=== PATIENT | female | born 2000 | race Caucasian/White ===

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

== ENCOUNTER 2021-01-04 18:31 | Outpatient (REF) | payer MEDICAID, SELFPAY ==
[2021-01-08 14:58] LABS: Chlamydia Result Negative (Negative); GC Result Negative (Negative)
== END 2021-01-04 18:32 | disposition home or self-care (01) ==
LOC: NCHCN 18:31
PROVIDERS: PCP Nurse Practitioner Family; Visit Provider Family Medicine
DX: R30.0 Dysuria (principal); Z11.3 Encounter for screening for infections with a predominantly sexual mode of transmission
CPT/HCPCS: 87491; 87591

== ENCOUNTER 2021-01-07 11:32 | Outpatient (REF) | payer MEDICAID, SELFPAY | END 2021-01-07 11:33 | disposition home or self-care (01) | LOC: NCHCN 11:32 | PROVIDERS: PCP Nurse Practitioner Family; Visit Provider Internal Medicine | DX: Z11.3 Encounter for screening for infections with a predominantly sexual mode of transmission (principal); R30.0 Dysuria | CPT/HCPCS: 87086 ==

== ENCOUNTER 2021-04-23 15:11 | Outpatient (REF) | payer MEDICAID, SELFPAY ==
[2021-04-25 17:55] LABS: Chlamydia Result Negative (Negative); GC Result Negative (Negative)
== END 2021-04-23 15:12 | disposition home or self-care (01) ==
LOC: NCHCN 15:11
PROVIDERS: PCP Nurse Practitioner Family; Visit Provider Family Medicine
DX: Z11.3 Encounter for screening for infections with a predominantly sexual mode of transmission (principal)
CPT/HCPCS: 87491; 87591

== ENCOUNTER 2021-08-06 15:48 | Outpatient (REF) | payer MEDICAID, SELFPAY ==
[2021-08-06 21:35] LABS: TSH (W/Ref FT4) 1.48 uIU/mL (0.36-3.74)
[2021-08-08 13:32] LABS: Chlamydia Result Negative (Negative); GC Result Negative (Negative)
== END 2021-08-06 15:49 | disposition home or self-care (01) ==
LOC: NCHCN 15:48
PROVIDERS: PCP Nurse Practitioner Family; Visit Provider Family Medicine
DX: R63.4 Abnormal weight loss (principal); R10.2 Pelvic and perineal pain
CPT/HCPCS: 87491; 87591; 84443

== ENCOUNTER 2022-02-05 16:14 | Outpatient (REF) | payer MEDICAID, SELFPAY ==
[2022-02-07 15:08] LABS: GC Result Negative (Negative)
[2022-02-07 15:17] LABS: Chlamydia Result Positive (Negative)
== END 2022-02-05 16:15 | disposition home or self-care (01) ==
LOC: NCHCN 16:14
PROVIDERS: PCP Nurse Practitioner Family; Visit Provider Family Medicine
DX: Z11.3 Encounter for screening for infections with a predominantly sexual mode of transmission (principal)
CPT/HCPCS: 87491; 87591

== ENCOUNTER 2022-04-22 16:39 | Outpatient (REF) | payer MEDICAID, SELFPAY ==
[2022-04-25 16:01] LABS: Chlamydia Result Negative (Negative); GC Result Negative (Negative)
== END 2022-04-22 16:40 | disposition home or self-care (01) ==
LOC: NCHCN 16:39
PROVIDERS: PCP Nurse Practitioner Family; Visit Provider Family Medicine
DX: A56.2 Chlamydial infection of genitourinary tract, unspecified (principal)
CPT/HCPCS: 87491; 87591

== ENCOUNTER 2022-07-15 16:25 | Outpatient (REF) | payer MEDICAID, SELFPAY ==
[2022-07-17 12:22] LABS: Chlamydia Result Negative (Negative); GC Result Negative (Negative)
== END 2022-07-15 16:26 | disposition home or self-care (01) ==
LOC: NCHCN 16:25
PROVIDERS: PCP Nurse Practitioner Family; Visit Provider Family Medicine
DX: Z11.3 Encounter for screening for infections with a predominantly sexual mode of transmission (principal)
CPT/HCPCS: 87491; 87591

== ENCOUNTER 2022-09-26 15:09 | Outpatient (REF) | payer MEDICAID, SELFPAY ==
--- NOTE | 2022-09-26 10:30 | PAPFT_PTH ---
PATIENT: Ana Luisa Foster LOC: [facility] U#:[id number] AGE/SX: 22/F ROOM: RE09/26/[address]: Sarah Thomas : 2000 BED: DIS: 09/26/2022 SPEC #: [id number] RECD: 09/28/22 07:46 STATUS: MERY REQ #: [id number] RITIKA: 09/26/22 10:[address]: Sarah Thomas [facility] Cytology RECD BY: Marla Martin ENTERED: 09/28/22 07:46 SP TYPE: PAPFT OTHR DR: Marcie Carrasquillo Tissues: 1 - CX/ENDOCX FOR PAP SMEARS Procedures: PAP THIN PREP/[facility] Screening Comments: [id number] (CHLAMYDIA/GC)
[2022-09-29 13:53] LABS: Chlamydia Result Negative (Negative); GC Result Negative (Negative)
== END 2022-09-26 15:10 | disposition home or self-care (01) ==
LOC: NCHCN 15:09
PROVIDERS: PCP Nurse Practitioner Family; Visit Provider Family Medicine
DX: Z11.3 Encounter for screening for infections with a predominantly sexual mode of transmission (principal); Z12.4 Encounter for screening for malignant neoplasm of cervix
CPT/HCPCS: 87491; 87591; 88142

== ENCOUNTER 2022-12-12 12:35 | Outpatient (REF) | payer MEDICAID, SELFPAY ==
[2022-12-12 14:52] LABS: Abs Immature Grans 0.01 10^3/uL (0.0-0.06); Absolute Basophil Count 0.05 10^3/uL (0.0-0.2); Absolute Eosinophil Count 0.18 10^3/uL (0.0-0.7); Absolute Lymphocyte Count 1.65 10^3/uL (1.2-3.4); Absolute Monocyte Count 0.54 10^3/uL (0.1-0.8); Absolute Neutrophil Count 3.17 10^3/uL (1.2-6.7); Basophils % 0.9; Eosinophils % 3.2; HCT 40.7 % (36.0-46.0); HGB 13.6 g/dL (11.2-15.7); Immature Grans % 0.2; Lymphocytes % 29.5; MCH 31.2 pg (27.0-33.0); MCHC 33.4 % (32.0-36.0); MCV 93 fL (80-95); Monocytes % 9.6; Neutrophils % 56.6; RBC 4.36 10^6/uL (3.93-5.22); RDW 13.3 % (11.7-14.6); RDW-SD 45.9 fL
[2022-12-12 15:03] LABS: ALT 30 U/L (14-59); AST 26 U/L (15-37); Albumin 4.2 g/dL (3.4-5.0); Alkaline Phosphatase 52 U/L (46-116); Anion Gap 7.5 mmol/L (3-11); BUN 10 mg/dL (7-18); Bilirubin, Total 3.7 mg/dL (0.2-1.0); CO2 27.5 mmol/L (21.0-32.0); CREATININE 0.8 mg/dL (0.55-1.02); Calcium 8.9 mg/dL (8.5-10.1); Chloride 107 mmol/L (98-107); Estimated GFR 107.44 (mL/min/1.73m2); Glucose 97 mg/dL (74-106); Potassium 4.4 mmol/L (3.5-5.1); Sodium 142 mmol/L (136-145); Total Protein 7.4 g/dL (6.4-8.2)
[2022-12-12 15:12] LABS: Platelet Count 194 10^3/uL (130-400)
[2022-12-15 10:11] LABS: Lyme Ab w Rflx to Lyme Confirm Negative (Negative)
[2022-12-15 21:04] LABS: Anaplasma phagocytophilum Negative (Negative); B. miyamotoi PCR Negative (Negative); Babesia divergens/MO-1 Negative (Negative); Babesia duncani Negative (Negative); Babesia microti Negative (Negative); Ehrlichia chaffeensis Negative (Negative); Ehrlichia ewingii/canis Negative (Negative); Ehrlichia muris eauclairensis Negative (Negative)
== END 2022-12-12 12:36 | disposition home or self-care (01) ==
LOC: NCHCN 12:35
PROVIDERS: PCP Nurse Practitioner Family; Visit Provider Family Medicine
DX: W57.XXXA Bitten or stung by nonvenomous insect and other nonvenomous arthropods, initial encounter (principal); T14.8XXA Other injury of unspecified body region, initial encounter
CPT/HCPCS: 80053; 87798; 85025; 86618

== ENCOUNTER 2023-02-20 10:18 | Outpatient (REF) | payer MEDICAID, SELFPAY ==
[2023-02-20 16:00] LABS: Bilirubin, Direct 0.3 mg/dL (0.0-0.2); Bilirubin, Total 2.2 mg/dL (0.2-1.0)
== END 2023-02-20 10:19 | disposition home or self-care (01) ==
LOC: NCHCN 10:18
PROVIDERS: PCP Nurse Practitioner Family; Visit Provider Family Medicine
DX: E80.6 Other disorders of bilirubin metabolism (principal)
CPT/HCPCS: 82247; 82248

== ENCOUNTER 2023-08-07 16:30 | Outpatient (REF) | payer MEDICAID, SELFPAY ==
--- OUTSIDE RECORDS SUMMARY | 2023-08-07 16:32 | XMS_ITS | CCD ---
Author Name Unknown Address [address] [place] [address] [id number] Organization Unknown Address [address] [place] [address] [phone] Care Team Providers Care Internet Database Specialist Name Role Phone NAOMI BARKSDALE Attending Physician [phone] Vital Signs Unknown or Not Available. Allergies Unknown or Not Available. Procedures Unknown or Not Available. History of Immunizations Unknown or Not Available. Problems Unknown or Not Available. Results Unknown or Not Available. Active Medications Unknown or Not Available. Medications Administered During Visit Unknown or Not Available. Encounters Encounter Diagnosis Diagnosis Code Start Date Pelvic and perineal pain [id number] Social History Smoking Status Code Start Date End Date Never smoker [id number] Patient Decision Aids Unknown or Not Available. Discharge Instructions You were admitted to [facility] on 08/20/2021 08:50 with a principal diagnosis of Pelvic and perineal pain You were discharged from [facility] on 08/20/2021 08:50 Should you have any questions prior to discharge, please contact a member of your healthcare team. If you have left the hospital and have any questions, please contact your primary care physician. Chief Complaint and Reason For Visit Chief Complaint Date of Onset ADNEXAL PAIN Function Status Unknown or Not Available. Plan of Care Unknown or Not Available. Referral/Transition of Care Unknown or Not Available.
--- OUTSIDE RECORDS SUMMARY | 2023-08-07 16:32 | XMS_ITS | CCD ---
Author Name Unknown Address [address] [place] [address] [phone] Organization Unknown Address [address] [place] [address] [phone] Care Team Providers Care Wet Suit Gluer Name Role Phone DANIEL MARQUEZ Attending Physician [phone] AVA GUERRA Er Physician 3 [phone] NADIA Rolle Registered Nurse [phone] Vital Signs Vital Sign Value Unit Date/Time Recent/Initial ? BMI (Body Mass Index) 24.2 kg/m^2 12/03/2022 13: 48 Initial VS Weight Measured 140 lbs 12/03/2022 13:48 Ini tial VS Height 63.78 in 12/03/2022 13:48 Initial VS BSA (Body Surface Area) 1.69 m^2 12/03/2022 1 3:48 Initial VS BP Systolic 114 mmHg 12/03/2022 13:48 Initial VS BP Diastolic 76 mmHg 12/03/2022 13:48 Initia l VS Respiratory Rate 18 bpm 12/03/2022 13:48 In itial VS Heart Rate 76 bpm 12/03/2022 13:48 Initial VS O2 % BldC Oximetry 100 % 12/03/2022 13:48 Initial VS Body Temperature 36.5 degrees 12/03/2022 13:48 In itial VS BP Systolic 114 mmHg 12/03/2022 18:04 Most Re cent VS BP Diastolic 72 mmHg 12/03/2022 18:04 Most R ecent VS Respiratory Rate 16 bpm 12/03/2022 18:[address] Recent VS Heart Rate 55 bpm 12/03/2022 18:04 Most Rec ent VS O2 % BldC Oximetry 98 % 12/03/2022 18:04 Most Recent VS Allergies Unknown or Not Available. Procedures Unknown or Not Available. History of Immunizations Unknown or Not Available. Problems Unknown or Not Available. Results BILIRUBIN DIRECT* - Collect Date/Time: 12/03/2022 15:03 Test Name Code Test Result Test Units Test Ref Rang e BILIRUBIN DIRECT 1971-1 0.20 mg/dL L=0.00 H =0.50 COMPREHENSIVE METABOLIC PANE L (CMP) - Collect Date/Time: 12/03/2022 15:03 Test Name Code Test Result Test Units Test Ref Rang e GLUCOSE 2345-7 87 mg/dL L=70 H=116 BUN 3094-0 9 mg/dL L=6 H=25 CREATININE 2160-0 0.81 mg/dL L=0.51 H=0.95 SODIUM SERUM 2951-2 142 mmol/L L=136 H=145 POTASSIUM SERUM 2823-3 3.6 mmol/L L=3.4 H=5 .2 CHLORIDE SERUM 2075-0 103 mmol/L L=96 H=110 CARBON DIOXIDE (CO2) 2028-9 29 mmol/L L=22 H=34 ANION GAP 30668-9 9.8 mmol/L CALCIUM SERUM 68404-2 9.1 mg/dL L=8.2 H=10. 2 BILIRUBIN TOTAL 1975-2 3.5 mg/dL L=0.0 H=1 .3 ALK. PHOS. 6768-6 47 U/L L=46 H=116 SGOT (AST) 1920-8 34 U/L L=15 H=37 SGPT (ALT) 1742-6 39 U/L L=12 H=78 TOTAL PROTEIN 2885-2 7.4 gm/dL L=6.0 H=8.0 ALBUMIN 1751-7 4.3 gm/dL L=3.4 H=5.0 AGE 22 years eGFR (non-Afr.Amer.) 70778-1 89 mL/min eGFR (Afr-Pakistani) 99207-2 108 mL/min LIPASE* NEW - Collect Date/T josé: 12/03/2022 15:03 Test Name Code Test Result Test Units Test Ref Rang e LIPASE. 11 U/L L=16 H=77 CBC W/ DIFFERENTIAL* - Colle ct Date/Time: 12/03/2022 15:03 Test Name Code Test Result Test Units Test Ref Rang e WBC 6690-2 6.90 th/cmm L=5.00 H=10.00 NEUT % 61.7 % L=40.0 H=80.0 LYMPH % 28.1 % L=10.0 H=50.0 MONO % 24139-1 7.5 % L=2.0 H=12.0 EOS % 1.4 % L=0.0 H=8.0 BASO % 1.0 % L=0.0 H=3.0 IG % 2514-8 0.3 % L=0.0 H=1.1 NRBC % 03664-8 0.0 % L=0.0 H=0.0 NEUT abs count 751-8 4.3 th/cmm L=1.6 H=8. 4 LYMPH abs count 731-0 1.9 th/cmm L=1.5 H=4 .0 MONO abs count 742-7 0.5 th/cmm L=0.2 H=1. 0 EOS abs count 711-2 0.1 th/cmm L=0.0 H=0.5 BASO abs count 704-7 0.1 th/cmm L=0.0 H=0. 2 IG abs count 98334-5 0.0 th/cmm L=0.0 H=0.1 NRBC abs count 41068-5 0.0 mil/cmm L=0.0 H=0. 0 RBC 789-8 4.38 mil/cmm L=3.90 H=5.40 HEMOGLOBIN 718-7 13.7 gm/dL L=12.0 H=16.0 HEMATOCRIT 4544-3 41 % L=37 H=47 MCV 787-2 94 fL L=82 H=92 MCH 785-6 31.3 pg L=27.0 H=31.0 MCHC 786-4 33.4 % L=32.0 H=36.0 RDW-SD 788-0 47.1 fL L=39.0 H=49.0 PLATELET COUNT 777-3 175 th/cmm L=150 H=45 0 TEST QUAL (URINE) - Collect Date/Time: 12/03/2022 15:03 Test Name Code Test Result Test Units Test Ref Rang e TEST 2105-08 NEGATIVE N/A URINALYSIS WITH REFLEX CULT IF POSITIVE* - Collect Date/Time: 12/03/2022 16:54 Test Name Code Test Result Test Units Test Ref Rang e COLLECTION MODE: 96193-4 CLEAN CATCH N/A Color 5778-6 JESUS N/A yellow Appearance 5767-9 HAZY N/A clear Glucose urine 36863-2 NEGATIVE N/A negative mg /dl Bilirubin 5770-3 SMALL N/A negative Ketones 2514-8 TRACE N/A negative mg/dl Spec gravity 5811-5 >=1.030 N/A 1.003 - 1.03 0 pH urine 2756-5 6.0 N/A 5.0 - 7.0 Protein 12744-4 TRACE N/A negative mg/dl Urobilinogen 72104-3 0.2 N/A <or= 1 EU/dl Nitrite. 5802-4 NEGATIVE N/A negative Blood 5794-3 NEGATIVE N/A negative Leukocytes. NEGATIVE N/A negative MICROSCOPIC NOT INDICAT N/A URINALYSIS WITH REFLEX CULT IF POSITIVE* - Collect Date/Time: 12/03/2022 15:03 Test Name Code Test Result Test Units Test Ref Rang e COLLECTION MODE: 73456-2 DNR N/A Color 5778-6 DNR N/A yellow Appearance 5767-9 DNR N/A clear Glucose urine 25755-5 DNR N/A negative mg /dl Bilirubin 5770-3 DNR N/A negative Ketones 2514-8 DNR N/A negative mg/dl Spec gravity 5811-5 DNR N/A 1.003 - 1.03 0 pH urine 2756-5 DNR N/A 5.0 - 7.0 Protein 55529-9 DNR N/A negative mg/dl Urobilinogen 65199-7 DNR N/A <or= 1 EU/dl Nitrite. 5802-4 DNR N/A negative Blood 5794-3 DNR N/A negative Leukocytes. DNR N/A negative MICROSCOPIC DNR N/A WBCs. 24917-1 DNR N/A 0-5 / hpf RBCs 59786-3 DNR N/A 0-5 / hpf Epith cells 45613-8 DNR N/A 0-5 / hpf Cell types DNR N/A Crystals DNR N/A none Bacteria DNR N/A none Mucus 8247-9 DNR N/A none Casts 61858-9 DNR N/A none /lpf Active Medications Unknown or Not Available. Medications Administered During Visit Unknown or Not Available. Encounters Encounter Diagnosis Diagnosis Code Start Date Eczema [id number] 12/03/2022 Social History Smoking Status Code Start Date End Date Never smoker [id number] Patient Decision Aids Unknown or Not Available. Discharge Instructions You were admitted to [facility] on 12/03/2022 13:44 with a principal diagnosis of Dermatitis, unspecified You had the following tests done:URINALYSIS WITH REFLEX CULT IF POSITIVE*BILIRUBIN DIRECT*CBC W/ DIFFERENTIAL*COMPREHENSIVE METABOLIC PANEL (CMP)LIPASE* NEWPREGNANCY TEST QUAL (URINE) You were discharged from [facility] on 12/03/2022 18:05 Should you have any questions prior to discharge, please contact a member of your healthcare team. If you have left the hospital and have any questions, please contact your primary care physician. Chief Complaint and Reason For Visit Chief Complaint Date of Onset FULL BODY RASH AFTER RECENT TRAVEL Function Status Unknown or Not Available. Plan of Care Unknown or Not Available. Referral/Transition of Care Unknown or Not Available.
--- OUTSIDE RECORDS SUMMARY | 2023-08-07 16:32 | XMS_ITS | CCD ---
Author Name Unknown Address [address] [place] [address] [phone] Organization Unknown Address [address] [place] [address] [phone] Care Team Providers Care Stores Assistant Name Role Phone CHAUNCEY HARPER Attending Physician [phone] CHAUNCEY HARPER Er Physician 2 [phone] NAHEED Villa Registered Nurse [phone] DANIA Villa Registered Nurse [phone] Vital Signs Vital Sign Value Unit Date/Time Recent/Initial ? BMI (Body Mass Index) 22.6 kg/m^2 01/07/2023 10: 53 Initial VS Weight Measured 140 lbs 01/07/2023 10:53 Ini tial VS Height 66 in 01/07/2023 10:53 Initial VS BSA (Body Surface Area) 1.72 m^2 01/07/2023 1 0:53 Initial VS BP Systolic 122 mmHg 01/07/2023 10:53 Initial VS BP Diastolic 93 mmHg 01/07/2023 10:53 Initia l VS Respiratory Rate 19 bpm 01/07/2023 10:53 In itial VS Heart Rate 144 bpm 01/07/2023 10:53 Initial VS O2 % BldC Oximetry 97 % 01/07/2023 10:53 Initial VS Body Temperature 37.1 degrees 01/07/2023 10:53 In itial VS BP Systolic 100 mmHg 01/07/2023 13:15 Most Re cent VS BP Diastolic 57 mmHg 01/07/2023 13:15 Most R ecent VS Respiratory Rate 14 bpm 01/07/2023 13:[address] Recent VS Heart Rate 58 bpm 01/07/2023 13:15 Most Rec ent VS O2 % BldC Oximetry 98 % 01/07/2023 13:15 Most Recent VS Body Temperature 36.4 degrees 01/07/2023 13:[address] Recent VS Allergies Allergy Code Allergy Type Reaction Status BEE POLLEN 456300 Drug allergy Active Procedures Unknown or Not Available. History of Immunizations Unknown or Not Available. Problems Unknown or Not Available. Results CBC W/ DIFFERENTIAL* - [facility] ct Date/Time: 01/07/2023 11:08 Test Name Code Test Result Test Units Test Ref Rang e WBC 6690-2 7.29 th/cmm L=5.00 H=10.00 NEUT % 58.3 % L=40.0 H=80.0 LYMPH % 32.1 % L=10.0 H=50.0 MONO % 24558-8 7.0 % L=2.0 H=12.0 EOS % 1.8 % L=0.0 H=8.0 BASO % 0.7 % L=0.0 H=3.0 IG % 2514-8 0.1 % L=0.0 H=1.1 NRBC % 87087-9 0.0 % L=0.0 H=0.0 NEUT abs count 751-8 4.3 th/cmm L=1.6 H=8. 4 LYMPH abs count 731-0 2.3 th/cmm L=1.5 H=4 .0 MONO abs count 742-7 0.5 th/cmm L=0.2 H=1. 0 EOS abs count 711-2 0.1 th/cmm L=0.0 H=0.5 BASO abs count 704-7 0.1 th/cmm L=0.0 H=0. 2 IG abs count 32030-2 0.0 th/cmm L=0.0 H=0.1 NRBC abs count 10064-6 0.0 mil/cmm L=0.0 H=0. 0 RBC 789-8 4.88 mil/cmm L=3.90 H=5.40 HEMOGLOBIN 718-7 15.1 gm/dL L=12.0 H=16.0 HEMATOCRIT 4544-3 46 % L=37 H=47 MCV 787-2 94 fL L=82 H=92 MCH 785-6 30.9 pg L=27.0 H=31.0 MCHC 786-4 32.9 % L=32.0 H=36.0 RDW-SD 788-0 45.8 fL L=39.0 H=49.0 PLATELET COUNT 777-3 206 th/cmm L=150 H=45 0 TEST QUAL (URINE) - Collect Date/Time: 01/07/2023 11:05 Test Name Code Test Result Test Units Test Ref Rang e TEST 2105-3 NEGATIVE N/A URINALYSIS WITH REFLEX CULT IF POSITIVE* - Collect Date/Time: 01/07/2023 11:05 Test Name Code Test Result Test Units Test Ref Rang e COLLECTION MODE: 24095-3 CLEAN CATCH N/A Color 5778-6 YELLOW N/A yellow Appearance 5767-9 CLEAR N/A clear Glucose urine 59083-8 NEGATIVE N/A negative mg /dl Bilirubin 5770-3 NEGATIVE N/A negative Ketones 2514-8 NEGATIVE N/A negative mg/dl Spec gravity 5811-5 1.020 N/A 1.003 - 1.03 0 pH urine 2756-5 7.5 N/A 5.0 - 7.0 Protein 20945-1 NEGATIVE N/A negative mg/dl Urobilinogen 10689-0 1.0 N/A <or= 1 EU/dl Nitrite. 5802-4 NEGATIVE N/A negative Blood 5794-3 NEGATIVE N/A negative Leukocytes. NEGATIVE N/A negative MICROSCOPIC NOT INDICAT N/A CHLAMYDIA/GC AMPLIFIED PROBE * - Collect Date/Time: 01/07/2023 12:30 Test Name Code Test Result Test Units Test Ref Rang e Chlamydia Result Negative N/A Negative GC Result Negative N/A Negative Active Medications Unknown or Not Available. Medications Administered During Visit Unknown or Not Available. Encounters Encounter Diagnosis Diagnosis Code Start Date Unspecified ovarian cyst, right side [id number] 01/07/2023 Social History Smoking Status Code Start Date End Date Never smoker [id number] Patient Decision Aids Unknown or Not Available. Discharge Instructions You were admitted to [facility] on 01/07/2023 10:39 with a principal diagnosis of Unspecified ovarian cyst, right side You had the following tests done:CHLAMYDIA/GC AMPLIFIED PROBE*CBC W/ DIFFERENTIAL* TEST QUAL (URINE)URINALYSIS WITH REFLEX CULT IF POSITIVE* You were discharged from [facility] on 01/07/2023 13:30 Should you have any questions prior to discharge, please contact a member of your healthcare team. If you have left the hospital and have any questions, please contact your primary care physician. Chief Complaint and Reason For Visit Chief Complaint Date of Onset EXTREME LOW ABDOMEN PAIN Function Status Unknown or Not Available. Plan of Care Unknown or Not Available. Referral/Transition of Care Unknown or Not Available.
--- OUTSIDE RECORDS SUMMARY | 2023-08-07 16:32 | XMS_ITS | CCD ---
Author Name Unknown Address [address] [place] [address] [phone] Organization Unknown Address [address] [place] [address] [phone] Care Team Providers Care [facility] Counselor Name Role Phone NAOMI BARKSDALE Attending Physician [phone] Vital Signs Unknown or Not Available. Allergies Unknown or Not Available. Procedures Unknown or Not Available. History of Immunizations Unknown or Not Available. Problems Unknown or Not Available. Results Unknown or Not Available. Active Medications Unknown or Not Available. Medications Administered During Visit Unknown or Not Available. Encounters Encounter Diagnosis Diagnosis Code Start Date Jaundice [id number] 12/23/2022 Social History Smoking Status Code Start Date End Date Never smoker [id number] Patient Decision Aids Unknown or Not Available. Discharge Instructions You were admitted to [facility] on 12/23/2022 08:40 with a principal diagnosis of Unspecified jaundice You were discharged from [facility] on 12/23/2022 08:40 Should you have any questions prior to discharge, please contact a member of your healthcare team. If you have left the hospital and have any questions, please contact your primary care physician. Chief Complaint and Reason For Visit Chief Complaint Date of Onset ELEVATED BILIRUBIN Function Status Unknown or Not Available. Plan of Care Unknown or Not Available. Referral/Transition of Care Unknown or Not Available.
--- OUTSIDE RECORDS SUMMARY | 2023-08-07 16:32 | XMS_ITS | CCD ---
Author Name Unknown Address [address] [place] [address] [phone] Organization Unknown Address [address] [place] [address] [phone] Care Team Providers Care Metallurgical Laboratory Assistant Name Role Phone NAOMI BARKSDALE Attending Physician [phone] Vital Signs Unknown or Not Available. Allergies Unknown or Not Available. Procedures Unknown or Not Available. History of Immunizations Unknown or Not Available. Problems Unknown or Not Available. Results Unknown or Not Available. Active Medications Unknown or Not Available. Medications Administered During Visit Unknown or Not Available. Encounters Encounter Diagnosis Diagnosis Code Start Date Pelvic and perineal pain R102 023 Social History Smoking Status Code Start Date End Date Never smoker [id number] Patient Decision Aids Unknown or Not Available. Discharge Instructions You were admitted to [facility] on 07/25/2022 10:41 with a principal diagnosis of Pelvic and perineal pain You were discharged from [facility] on 07/25/2022 10:41 Should you have any questions prior to discharge, please contact a member of your healthcare team. If you have left the hospital and have any questions, please contact your primary care physician. Chief Complaint and Reason For Visit Chief Complaint Date of Onset PELVIC PAIN Function Status Unknown or Not Available. Plan of Care Unknown or Not Available. Referral/Transition of Care Unknown or Not Available.
--- OUTSIDE RECORDS SUMMARY | 2023-08-07 16:32 | XMS_ITS | CCD ---
Author Name Unknown Address [address] [place] [address] [phone] Organization Unknown Address [address] [place] [address] [phone] Care Team Providers Care Office Executive Name Role Phone DANNY LOYD ERIKA Attending Physician [phone] Vital Signs Unknown or Not Available. Allergies Unknown or Not Available. Procedures Unknown or Not Available. History of Immunizations Unknown or Not Available. Problems Unknown or Not Available. Results URINALYSIS WITH REFLEX CULT IF POSITIVE - Collect Date/Time: 12/13/2020 15:18 Test Name Code Test Result Test Units Test Ref Rang e COLLECTION MODE: CLEAN CATCH N/A Color 5778-6 YELLOW N/A yellow Appearance 5767-9 CLEAR N/A clear Glucose urine 97888-3 NEGATIVE N/A negative mg /dl Bilirubin 5770-3 NEGATIVE N/A negative Ketones 2514-8 NEGATIVE N/A negative mg/dl Spec gravity 5811-5 >=1.030 N/A 1.003 - 1.03 0 pH urine 2756-5 6.0 N/A 5.0 - 7.0 Protein 58376-7 NEGATIVE N/A negative mg/dl Urobilinogen 06367-5 0.2 N/A <or= 1 EU/dl Nitrite. 5802-4 NEGATIVE N/A negative Blood 5794-3 NEGATIVE N/A negative Leukocytes. NEGATIVE N/A negative MICROSCOPIC NOT INDICAT N/A Active Medications Unknown or Not Available. Medications Administered During Visit Unknown or Not Available. Encounters Encounter Diagnosis Diagnosis Code Start Date Pelvic and perineal pain [id number] 021 Social History Smoking Status Code Start Date End Date Never smoker [id number] Patient Decision Aids Unknown or Not Available. Discharge Instructions You were admitted to [facility] 01 on 12/13/2020 15:11 with a principal diagnosis of Pelvic and perineal pain You had the following tests done:URINALYSIS WITH REFLEX CULT IF POSITIVE You were discharged from [facility] 01 on 12/13/2020 15:11 Should you have any questions prior to discharge, please contact a member of your healthcare team. If you have left the hospital and have any questions, please contact your primary care physician. Chief Complaint and Reason For Visit Unknown or Not Available. Function Status Unknown or Not Available. Plan of Care Unknown or Not Available. Referral/Transition of Care Unknown or Not Available.
--- OUTSIDE RECORDS SUMMARY | 2023-08-07 16:32 | XMS_ITS | CCD ---
Author Name Unknown Address [address] [place] [address] [phone] Organization Unknown Address [address] [place] [address] [phone] Care Team Providers Care Refuse Laborer Name Role Phone NAOMI BARKSDALE Attending Physician [phone] Vital Signs Unknown or Not Available. Allergies Unknown or Not Available. Procedures Unknown or Not Available. History of Immunizations Unknown or Not Available. Problems Unknown or Not Available. Results Unknown or Not Available. Active Medications Unknown or Not Available. Medications Administered During Visit Unknown or Not Available. Encounters Encounter Diagnosis Diagnosis Code Start Date Presence of (intrauterine) contraceptive device Z975 09/29/2022 Social History Smoking Status Code Start Date End Date Never smoker [id number] Patient Decision Aids Unknown or Not Available. Discharge Instructions You were admitted to [facility] on 09/29/2022 09:51 with a principal diagnosis of Presence of (intrauterine) contraceptive device You were discharged from [facility] on 09/29/2022 09:51 Should you have any questions prior to discharge, please contact a member of your healthcare team. If you have left the hospital and have any questions, please contact your primary care physician. Chief Complaint and Reason For Visit Chief Complaint Date of Onset MISSING IUD STRINGS Function Status Unknown or Not Available. Plan of Care Unknown or Not Available. Referral/Transition of Care Unknown or Not Available.
[2023-08-08 14:40] LABS: Chlamydia Result Negative (Negative); GC Result Negative (Negative)
== END 2023-08-07 16:31 | disposition home or self-care (01) ==
LOC: NCHCN 16:30
PROVIDERS: PCP Nurse Practitioner Family; Visit Provider Family Medicine
DX: Z11.3 Encounter for screening for infections with a predominantly sexual mode of transmission (principal)
CPT/HCPCS: 87491; 87591

== ENCOUNTER 2023-10-01 16:47 | Outpatient (REF) | payer MEDICAID, SELFPAY | END 2023-10-01 16:48 | disposition home or self-care (01) | LOC: NCHCN 16:47 | PROVIDERS: PCP Nurse Practitioner Family; Visit Provider Physician Assistant | DX: R30.0 Dysuria (principal) | CPT/HCPCS: 87077; 87086; 87186 ==

== ENCOUNTER 2024-01-06 14:11 | Outpatient (REF) | payer MEDICAID, SELFPAY ==
[2024-01-08 09:32] LABS: Hepatitis B Surface Ag Negative (Negative)
[2024-01-08 10:01] LABS: Hepatitis C Ab w Rflx HCV PCR Negative (Negative)
[2024-01-08 10:10] LABS: HIV-1/2 Ag & Ab Screen Negative (Negative)
[2024-01-08 12:38] LABS: Syphilis Serology (RPR) Negative (Negative)
== END 2024-01-06 14:12 | disposition home or self-care (01) ==
LOC: NCHCN 14:11
PROVIDERS: PCP Nurse Practitioner Family; Visit Provider Physician Assistant
DX: Z11.3 Encounter for screening for infections with a predominantly sexual mode of transmission (principal)
CPT/HCPCS: 86803; 87340; 87389; 86592

== ENCOUNTER 2024-04-10 15:52 | Emergency (ER) | payer MEDICAID, SELFPAY ==
[2024-04-10 15:56] VITALS: BP 142/91; PULSE 70; RESP 18; TEMP 36; O2SAT 100
[2024-04-10 16:53] LABS: Abs Immature Grans 0.01 10^3/uL (0.0-0.06); Absolute Basophil Count 0.04 10^3/uL (0.0-0.2); Absolute Monocyte Count 0.56 10^3/uL (0.1-0.8); Absolute Neutrophil Count 3.39 10^3/uL (1.2-6.7); Basophils % 0.6 %; Eosinophils % 1.6 %; HCT 42.4 % (36.0-46.0); HGB 14.3 g/dL (11.2-15.7); Immature Grans % 0.2 %; Lymphocytes % 33.9 %; MCH 31.4 pg (27.0-33.0); MCHC 33.7 % (32.0-36.0); MCV 93 fL (80-95); MPV 12.5 fL (8.0-11.0); Neutrophils % 54.7 %; Platelet Count 162 10^3/uL (130-400); RBC 4.55 10^6/uL (3.93-5.22); RDW 13.1 % (11.7-14.6); RDW-SD 45.2 fL
[2024-04-10 17:01] LABS: ALT 30 U/L (14-59); AST 34 U/L (15-37); Albumin 3.9 g/dL (3.4-5.0); Alkaline Phosphatase 57 U/L (46-116); Anion Gap 11.3 mmol/L (3-11); BUN 7 mg/dL (7-18); Bilirubin, Total 1.84 mg/dL (0.2-1.0); CO2 21.7 mmol/L (21.0-32.0); CREATININE 0.7 mg/dL (0.55-1.02); Chloride 106 mmol/L (98-107); Estimated GFR 125.33 (mL/min/1.73m2); Glucose 80 mg/dL (74-106); Lipase 16 U/L (16-77); Potassium 4.7 mmol/L (3.5-5.1); Sodium 139 mmol/L (136-145); Total Protein 7.8 g/dL (6.4-8.2)
[2024-04-10 17:06] LABS: Calcium 9.3 mg/dL (8.5-10.1)
--- NOTE | 2024-04-10 17:12 | DI.CT_ITS ---
Exam(s) CT ABDOMEN PELVIS WO EXAM: CT ABDOMEN PELVIS WO CLINICAL HISTORY: LLQ and flank pain. TECHNIQUE: Imaging Protocol: Axial computed tomography images with coronal and sagittal reformatted images were created and reviewed CONTRAST MATERIAL: Intravenous: none Oral: None COMPARISON: No exams were available for comparison FINDINGS: VISUALIZED LUNG BASES: No nodules nor pleural effusions evident. ABDOMEN: There is no ascites. LIVER: There are no obvious focal hepatic lesions evident of this noninfused study. GALLBLADDER/BILIARY: The gallbladder surgically absent. CBD is not dilated. PANCREAS: No evidence of pancreatic mass nor dilatation of the pancreatic duct. SPLEEN: Spleen is not enlarged. No obvious intrasplenic lesions. ADRENALS: There are no significant adrenal masses. KIDNEYS:No cysts evident. No solid renal masses. No calculi nor hydronephrosis. . ABDOMINAL AORTA: Abdominal aorta is not enlarged. LYMPH NODES: There is no retroperitoneal nor paraaortic adenopathy. ABDOMINAL WALL: No evidence of significant anterior abdominal wall nor inguinal hernia. GI: There is no evidence of bowel obstruction, free air, nor abscess. PELVIS: LYMPH NODES: No intrapelvic adenopathy. Shoddy lymph nodes in both inguinal regions noted. GI: No evidence of appendicitis.No evidence of sigmoid diverticulitis. URINARY BLADDER: No calculi nor obvious masses evident REPRODUCTIVE: There is an IUD in satisfactory position within the endometrial canal of the anteverted uterus. There are no abnormal adnexal masses. There is a tiny amount of free fluid in the cul-de-s ac in this young female patient, probably physiologic OSSEOUS: No significant osseous lesions. No fractures IMPRESSION: 1. No evidence of acute appendicitis 2. IUD in satisfactory position in the endometrial cavity of the uterus. No abnormal adnexal finding s. There is a tiny amount of free fluid in the pelvis which is most probably female physiologic in t his 23-year-old 3. No radiopaque renal calculi in the kidneys nor in the nondilated ureters nor within the nondistend ed urinary bladder. Report called by myself to ER provider 04/10/2024 at 5:53 p.m. RADIATION DOSE DELIVERED: 251.23mGy.cm Total DLP DATA REPOSITORY: All CT scans at this facility are submitted to the National Radiology Data Registry (NRDR) Dose Index Registry (DIR) with the [employer] (A[employer]). RADIATION OPTIMIZATION: All CT scans at this facility use at least one of these dose optimization te chniques: automated exposure control; mA and/or kV adjustment per patient size (includes targeted exa ms where dose is matched to clinical indication); or iterative reconstruction.
[2024-04-10 17:13] LABS: Bilirubin Negative (Negative); Blood Trace-intact (Negative); Clarity Clear (Clear); Glucose Negative (Negative); Ketones Negative (Negative); Leukocyte Esterase Negative (Negative); Nitrite Negative (Negative)
--- NOTE | 2024-04-10 17:13 | ED.GENADUL_ITS ---
Discharge Plan Disposition Patient Disposition: Home Condition: Stable Discharge Details Clinical Impression: Back pain Primary Care Provider: Marcie Carrasquillo ED Provider: Ana Bird Home Meds and New Rx's Prescriptions: New cyclobenzaprine 10 mg tablet 10 mg PO TID PRNQty: 10 0RF Continued levonorgestrel 20.4 mcg/24 hr (8 yrs) 52 mg intrauterine device 1 device intrauterine ONCE Rx Instructions: as a single dose Discharge Instructions Instructions: Low Back Pain ED, Constipation, Adult ED Additional Instructions: I suspect you have constipation and back pain, I recommend starting MiraLAX and taking it for at least the next 5 days until you have a good bowel movement Take ibuprofen 600 mg every 8 hours with food and Tylenol 650 every 4 hours Have also written for Flexeril for musculoskeletal pain, do not combine this with alcohol If you would like the results of your CAT scan, please call back in the next 2 hours the results should be back at that time You are leaving prior to the official radiologist interpretation and therefore against our medical recommendation at this time Referrals: Marcie Carrasquillo [Primary Care Provider] - Discharge Data Discharge Date/Time-TO BE ENTERED AT DEPARTURE: 04/10/24 17:46 HPI General Date/Time Provider Initiated Documentation: 04/10/24 16:09 . HPI Narrative: This 23-year-old female presents with report of back pain that started on of this week. Denies any known trauma. 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 States the pain is worsened with walking and with movement. Denies any chest pain or shortness of breath. Denies any fever or chills. States that she is concerned that she might be as she had is faintly positive test at home. Has a IUD in place x 4 years per patient. Has spotting without typical menstrual period. Denies any fever or chills. Denies dysuria or frequency. Related Data Home Medications ?Medication ?Instructions ?Recorded ?Confirmed cyclobenzaprine 10 mg tablet 10 mg PO TID PRN #10 tabs 04/10/24 levonorgestrel 20.4 mcg/24 hr (up 1 device intrauterine ONCE 04/10/24 04/10/24 to 8 yrs) 52 mg intrauterine device Previous Rx's ?Medication ?Instructions ?Recorded cyclobenzaprine 10 mg tablet 10 mg PO TID PRN #10 tabs 04/10/24 Allergies Allergy/AdvReac Type Severity Reaction Status Date / Time No Known Allergies Allergy Unverified 04/10/24 15:59 General Stated Complaint: FlankPain GRACIELA: 3 Exam Narrative Exam Narrative: Alert and oriented 23-year-old female in no acute distress, left CVA tenderness and left lower quadrant tenderness, cardiac rate rhythm regular, distal pulses intact, no right lower quadrant tenderness, no midline lumbar spine tenderness, negative straight leg raise, strength and sensation intact distally Course Vital Signs Vital signs: Vital Signs Temperature 36.0 C L 04/10/24 15:56 Pulse 70 04/10/24 15:56 Respiratory Rate 18 04/10/24 15:56 Blood Pressure 142/91 H 04/10/24 15:56 Pulse Oximetry 100 04/10/24 15:56 Temperature 36.0 C L 04/10/24 15:56 Temperature Source Oral 04/10/24 15:56 Pulse 70 04/10/24 15:56 Respiratory Rate 18 04/10/24 15:56 Blood Pressure 142/91 H 04/10/24 15:56 Pulse Oximetry 100 04/10/24 15:56 Oxygen Delivery Method Room Air 04/10/24 15:56 Oxygen Flow Rate 0 04/10/24 15:56 Lab/Test Results Lab/Test Results: Laboratory Tests Range/Units 04/10/24 16:36 WBC (4.4-10.8) 10^3/uL 6.20 RBC (3.93-5.22) 10^6/uL 4.55 Hgb (11.2-15.7) g/dL 14.3 Hct (36.0-46.0) % 42.4 MCV (80-95) fL 93 MCH (27.0-33.0) pg 31.4 MCHC (32.0-36.0) % 33.7 RDW (11.7-14.6) % 13.1 Plt Count (130-400) 10^3/uL 162 MPV (8.0-11.0) fL 12.5 H Immature Gran % % 0.2 Neutrophils % % 54.7 Lymphocytes % % 33.9 Monocytes % % 9.0 Eosinophils % % 1.6 Basophils % % 0.6 Nucleated RBC % (0.0-0.3) % 0.0 Absolute Neutrophils (1.2-6.7) 10^3/uL 3.39 Absolute Lymphocytes (1.2-3.4) 10^3/uL 2.10 Absolute Monocytes (0.1-0.8) 10^3/uL 0.56 Absolute Eosinophils (0.0-0.7) 10^3/uL 0.10 Absolute Basophils (0.0-0.2) 10^3/uL 0.04 Sodium (136-145) mmol/L 139 Potassium (3.5-5.1) mmol/L 4.7 Chloride (98-107) mmol/L 106 Carbon Dioxide (21.0-32.0) mmol/L 21.7 Anion Gap (3-11) mmol/L 11.3 H BUN (7-18) mg/dL 7 Creatinine (0.55-1.02) mg/dL 0.7 Est GFR (CKD-EPI 2020) (mL/min/1.73m2) 125.33 Glucose (74-106) mg/dL 80 Calcium (8.5-10.1) mg/dL 9.3 Total Bilirubin (0.2-1.0) mg/dL 1.84 H AST (15-37) U/L 34 ALT (14-59) U/L 30 Alkaline Phosphatase (46-116) U/L 57 Total Protein (6.4-8.2) g/dL 7.8 Albumin (3.4-5.0) g/dL 3.9 Lipase (16-77) U/L 16 POC- Test(urine) Negative Medical Decision Making 23-year-old female in no acute distress, CT abdomen pelvis ordered for further assessment given flank pain left lower quadrant pain, no evidence of acute abnormality per discussion with radiologist, Dr. Dumont. Negative test diagnostic labs within normal limits and urinalysis without any obvious evidence of infection. I suspect patient's pain is musculoskeletal in nature, will encourage ibuprofen and Tylenol use and Flexeril administration. Patient discharged home in stable condition with stable vitals return precautions reviewed and patient expressed understanding. Quality:SDOH Health Related Social Needs: No Data to Display PFSH All Active Problems (Updated 04/10/24 @ 17:35 by CARLI Villeda) Back pain (Acute) Social History Smoking risk assessment performed?: No
[2024-04-10 17:19] LABS: HCG Qual (Serum) Negative
[2024-04-10] MEDS: Normal Saline - Diluent 50 ML VIAL IJ (17:23)
[2024-04-10 17:24] LABS: Bacteria Negative HPF (Negative); C & S Indicated? No; Casts Negative LPF (Negative); Crystals Negative HPF (Negative); Epithelial Cells Few HPF (Negative); Mucus Trace (Negative); RBC 0-2 HPF (0-2); WBC Negative HPF (0-5)
[2024-04-10 17:47] VITALS: BP 142/91; PULSE 70; RESP 18; TEMP 36; O2SAT 98
[2024-04-10] MEDS: Cyclobenzaprine 10 MG TAB, 3 TABS/BTL PO (17:49)
== END 2024-04-10 17:46 | disposition home or self-care (01) ==
PROVIDERS: Emergency Provider Physician Assistant; PCP Nurse Practitioner Family
DX: M54.50 Low back pain, unspecified (principal); K59.00 Constipation, unspecified; Z90.49 Acquired absence of other specified parts of digestive tract; Z97.5 Presence of (intrauterine) contraceptive device
CPT/HCPCS: 80053; 81025; 83690; 99284; 74176; 81003; 81015; 84703; 85025

== ENCOUNTER 2024-06-08 09:51 | Emergency (ER) | payer MEDICAID, SELFPAY ==
[2024-06-08] VITALS (28 sets, daily range): BP systolic 105–140; BP diastolic 53–90; PULSE 92–107; RESP 16–20; TEMP 36.9–37; O2SAT 95–99
--- NOTE | 2024-06-08 10:15 | DI.RAD_ITS ---
Exam(s) XR PORTABLE CHEST AP EXAM: XR PORTABLE CHEST AP CLINICAL HISTORY: SOb and cough. TECHNIQUE: 2D digital imaging was performed. COMPARISON: No exams were available for comparison FINDINGS: Single AP portable view. Heart size is upper normal. The mediastinum is not widened. Left lung is clear. However, there is significant infiltrate in the medial right lung base. Either right lower lobe or right middle lobe medial segment. No pleural effusions. IMPRESSION: Right lung base infiltrate as described above. No pleural effusions evident this portable view. DATA REPOSITORY: RADIATION DOSE DELIVERED:
[2024-06-08 10:50] LABS: Abs Immature Grans 0.06 10^3/uL (0.0-0.06); Absolute Eosinophil Count 0.05 10^3/uL (0.0-0.7); Absolute Lymphocyte Count 1.09 10^3/uL (1.2-3.4); Absolute Monocyte Count 1.02 10^3/uL (0.1-0.8); BE (Venous) 1 mmol/L (-2-3); Basophils % 0.5 %; Eosinophils % 0.4 %; HCO3 (Venous) 26 mmol/L (23-28); HCT 43.4 % (36.0-46.0); HGB 14.8 g/dL (11.2-15.7); Immature Grans % 0.5 %; Lymphocytes % 8.2 %; MCH 31.1 pg (27.0-33.0); MCHC 34.1 % (32.0-36.0); MCV 91 fL (80-95); MPV 11.9 fL (8.0-11.0); Monocytes % 7.7 %; Neutrophils % 82.7 %; O2 Sat (Venous) 48 %; Platelet Count 196 10^3/uL (130-400); RBC 4.76 10^6/uL (3.93-5.22); RDW-SD 43.5 fL; TCO2 (Venous) 23 mmol/L (24-29); WBC 13.26 10^3/uL (4.4-10.8); pCO2 (Venous) 40 mmHg (41-51); pH (Venous) 7.41 (7.31-7.41); pO2 (Venous) 24 mmHg
[2024-06-08 10:55] LABS: Absolute Basophil Count 0.07 10^3/uL (0.0-0.2); Absolute Neutrophil Count 10.97 10^3/uL (1.2-6.7)
[2024-06-08 11:02] LABS: Bilirubin Moderate (Negative); Blood Negative (Negative); Clarity Clear (Clear); Glucose Negative (Negative); Ketones 80 mg/dL (Negative); Leukocyte Esterase Negative (Negative); Nitrite Negative (Negative)
[2024-06-08 11:08] LABS: ALT 20 U/L (14-59); AST 14 U/L (15-37); Albumin 4.1 g/dL (3.4-5.0); Alkaline Phosphatase 74 U/L (46-116); Anion Gap 12.2 mmol/L (3-11); BUN 6 mg/dL (7-18); Bilirubin, Total 1.82 mg/dL (0.2-1.0); CO2 25.8 mmol/L (21.0-32.0); CREATININE 0.8 mg/dL (0.55-1.02); Calcium 9.3 mg/dL (8.5-10.1); Chloride 100 mmol/L (98-107); Estimated GFR 106.11 (mL/min/1.73m2); Glucose 86 mg/dL (74-106); Potassium 3.6 mmol/L (3.5-5.1); Sodium 138 mmol/L (136-145); Total Protein 8.7 g/dL (6.4-8.2)
[2024-06-08] MEDS: Ondansetron 4 MG/2 ML VIAL IVP (11:08)
--- NOTE | 2024-06-08 11:08 | W.ED.GENAD ---
Discharge Plan Disposition Patient Disposition: Home Condition: Good Discharge Details Clinical Impression: Pneumonia, Stomach irritation, Left low back pain Primary Care Provider: Sarah Thomas ED Provider: Danish Goodson Home Meds and New Rx's Prescriptions: New azithromycin 250 mg tablet 250 mg PO DAILY 4 Days Qty: 4 0RF Rx Instructions: start on day 2 of therapy omeprazole 40 mg capsule,delayed release(DR/EC) 40 mg PO DAILY Qty: 30 0RF cyclobenzaprine 10 mg tablet 10 mg PO TID Qty: 14 0RF prednisone 50 mg tablet 50 mg PO DAILY Qty: 5 0RF lidocaine [Lidoderm] 5 % adhesive patch,medicated 1 patch Topical Q24H Qty: 15 0RF sucralfate [Carafate] 1 gram tablet 1 g PO BID Qty: 60 0RF No Action levonorgestrel 20.4 mcg/24 hr (8 yrs) 52 mg intrauterine device 1 device intrauterine ONCE Rx Instructions: as a single dose Discharge Instructions Instructions: Low Back Pain ED, Pneumonia, Adult ED Additional Instructions: At this time your symptoms appear to be consistent with 3 main pathologies: Pneumonia, back spasm, and gastric irritation. For your pneumonia you have been given the first dose of azithromycin antibiotic here. Please take your Symbicort inhaler 2 puffs every 12 hours for the next 1 to 2 weeks. For your back spasm, please stop taking Motrin, ibuprofen, Aleve, or naproxen as I am concerned that this will continue to cause harm to your abdomen and irritated stomach. In the meantime do not lift anything greater than 5 pounds for the next 2 weeks. Avoid any significant vigorous physical activity. Perform easy gentle regular activities at home without any significant bending or lifting. Please take the steroids as directed. You have been given a prescription for Lidoderm patch. If your insurance does not cover this you can get [id number] Lidoderm patches at 4% which are almost just as effective. Please take the Flexeril as directed but do not take it when driving or operating any vehicles or heavy machinery, swimming, taking long baths, or operating firearms. Please use a heating pad as often as possible on your back. Perform daily gentle stretches on your back. Please continue to take the Tylenol. You can take 1000 mg of Tylenol every 6 hours. You have been given a prescription for steroids. Please only take this if you are not having improvement of your back pain over the next 3 to 4 days. As the steroids could cause some irritation to your stomach. If you notice any worsening of your symptoms, or any new symptoms such as vomiting, diarrhea, fever, chills, shortness of breath, chest pain, numbness or tingling in your groin or legs, weakness in your legs, loss of control for your bowels or bladder, or fainting , please return immediately to the emergency department for reevaluation. In regards to your stomach pain, I suspect that you have a mild ulcer or irritation in your stomach. Please avoid any spicy foods, greasy foods, or tomato-based products. Please take the omeprazole and Carafate to help your stomach heal and get better from the ulcer and irritation. If you notice any worsening of your symptoms, or any new symptoms such as vomiting, diarrhea, fever, chills, shortness of breath, chest pain, numbness, weakness, or fainting , please return immediately to the emergency department for reevaluation. Please follow up with your primary care provider as soon as possible for reassessment and reevaluation. As always, it was a pleasure participating in your medical care today. Referrals: Sarah Thomas [Primary Care Provider] - [facility] General Date/Time Provider Initiated Documentation: 06/08/24 10:03. [facility] Narrative: 24-year-old female with a past medical history of control use, presents today with multiple complaints. Complaints are as follows #1: Left-sided back pain #2: Cough chills #3: Nausea and epigastric discomfort. #1: In regards to the back pain, the patient states that she has a history of back spasms. Most recent time was a month or 2 ago. She works at a [employer] and does a significant amount of heavy lifting and bending at all times. She usually responds well to NSAIDs steroids and muscle relaxants. She did have CT imaging performed 2 months ago and there are no osseous abnormalities in regards to her back pain. She has been taking a significant amount of extra Tylenol Motrin Aleve over the last few days for the back pain. Patient denies any saddle anesthesia, numbness or tingling in the groin, change in sensation when wiping. Patient denies any change in sensation during sexual intercourse, bowel or bladder incontinence, leakage, or retention. Patient denies any weakness in the lower extremities, atypical falls or imbalance. #2: In regards to her cough, she states that she has been having a cough for the last 3 to 5 days. It is productive, and she feels chilled regularly. She admits to a very small amount of speckling in the sputum. She does not smoke tobacco but she does smoke marijuana. No other complaints in regards to this otherwise. No history of blood clots long trips or procedures. #3: Over the last day or so she has had epigastric discomfort and achiness which she describes as feeling like there is a knot in her stomach. She has had a few episodes of vomiting because of this. She denies any significant amount of blood or large clots. She admits to some loose stool intermittently as well. She denies any alcohol use. She denies any other generalized abdominal pain or discomfort. No other complaints at this time. No other modifying factors. Related Data Home Medications ?Medication ?Instructions ?Recorded ?Confirmed levonorgestrel 20.4 mcg/24 hr (up 1 device intrauterine ONCE 04/10/24 06/08/24 to 8 yrs) 52 mg intrauterine device azithromycin 250 mg tablet 250 mg PO DAILY 4 days #4 tabs 06/08/24 cyclobenzaprine 10 mg tablet 10 mg PO TID #14 tabs 06/08/24 lidocaine 5 % topical patch 1 patch topical Q24H #15 ea 06/08/24 (Lidoderm) omeprazole 40 mg capsule,delayed 40 mg PO DAILY #30 caps 06/08/24 release prednisone 50 mg tablet 50 mg PO DAILY #5 tabs 06/08/24 sucralfate 1 gram tablet (Carafate) 1 g PO BID #60 tabs 06/08/24 Previous Rx's ?Medication ?Instructions ?Recorded azithromycin 250 mg tablet 250 mg PO DAILY 4 days #4 tabs 06/08/24 cyclobenzaprine 10 mg tablet 10 mg PO TID #14 tabs 06/08/24 lidocaine 5 % topical patch 1 patch topical Q24H #15 ea 06/08/24 (Lidoderm) omeprazole 40 mg capsule,delayed 40 mg PO DAILY #30 caps 06/08/24 release prednisone 50 mg tablet 50 mg PO DAILY #5 tabs 06/08/24 sucralfate 1 gram tablet (Carafate) 1 g PO BID #60 tabs 06/08/24 Allergies Allergy/AdvReac Type Severity Reaction Status Date / Time No Known Allergies Allergy Verified 06/08/24 10:10 General Stated Complaint: GenMedical GRACIELA: 3 Review of Systems All systems reviewed & are unremarkable except as noted in HPI and below Exam Narrative Exam Narrative: 1.Const: Well-nourished, Well-developed, appearing stated age 2.Eyes: PERRL, no conjunctival injection, and symmetrical lids. 3.ENT: Atraumatic external nose and ears. Moist MM. Neck: Symmetric, trachea midline, No thyromegaly. 4.CVS: +S1/S2, Peripheral pulses 2+ and equal in all extremities. Brisk capillary refill in all extremities. 5.RESP: Rhonchorous breath sounds, wheezes scattered throughout. Crackles in the bases particularly over the right. 6.GI: Soft, nondistended. No guarding or rebound. Mild left upper quadrant epigastric achiness on palpation. No evidence of a surgical abdomen. No right lower or right upper quadrant tenderness. 7.MSK: Normocephalic/Atraumatic, Extremities w/o deformity or ttp No cyanosis or clubbing, Normal movement of all extremities No midline tenderness to palpation over the CTLS spine. Notable spasm of the left lower paraspinal musculature. While there is no midline tenderness, she does have left paraspinal muscular tenderness on palpation. Normal ROM in flexion, extension, side bend, and rotation. Patient has +5 out of 5 strength in the lower extremities in dorsiflexion and plantarflexion, knee flexion and extension, hip flexion and extension. Normal strength for dorsiflexion and plantar flexion of the great toe bilaterally. There is +2 over 2 dorsalis pedis pulses bilaterally. There is normal sensation to the skin with light touch at the foot, knee, and hip. Normal saddle sensation. Good sensation over the deep sural nerve area bilaterally. Reflexes are +2 over 4 in the patellar reflex bilaterally. +5 out of 5 strength in the medial, ulnar, radial nerve distribution bilaterally in the hands as well as intact light touch sensation to these dermatomes on the hands 8.Skin: Warm, Dry. No rashes or lesions. 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 Sensation grossly intact, no focal neurologic deficits. 10.Psych: (AAO) x3. Appropriate mood and affect Course Vital Signs Vital signs: Vital Signs Temperature 37.0 C 06/08/24 09:58 Pulse 106 H 06/08/24 09:58 Respiratory Rate 18 06/08/24 09:58 Blood Pressure 127/81 06/08/24 09:58 Pulse Oximetry 98 06/08/24 09:58 Temperature 37.0 C 06/08/24 09:58 Pulse 106 H 06/08/24 09:58 Respiratory Rate 20 06/08/24 10:12 Respiratory Effort Non-Labored 06/08/24 10:12 Respiratory Depth Normal 06/08/24 10:12 Respiratory Pattern Normal 06/08/24 10:12 Blood Pressure 127/81 06/08/24 09:58 Blood Pressure Position Sitting 06/08/24 09:58 Pulse Oximetry 98 06/08/24 09:58 Oxygen Delivery Method Room Air 06/08/24 09:58 Oxygen Flow Rate 0 06/08/24 09:58 Lab/Test Results Lab/Test Results: 06/08/24 10:46 Urine - Voided Urine Culture - Pending Laboratory Tests Range/Units 06/08/24 06/08/24 10:38 10:46 WBC (4.4-10.8) 10^3/uL 13.26 H RBC (3.93-5.22) 10^6/uL 4.76 Hgb (11.2-15.7) g/dL 14.8 Hct (36.0-46.0) % 43.4 MCV (80-95) fL 91 MCH (27.0-33.0) pg 31.1 MCHC (32.0-36.0) % 34.1 RDW (11.7-14.6) % 13.0 Plt Count (130-400) 10^3/uL 196 MPV (8.0-11.0) fL 11.9 H Immature Gran % % 0.5 Neutrophils % % 82.7 Lymphocytes % % 8.2 Monocytes % % 7.7 Eosinophils % % 0.4 Basophils % % 0.5 Nucleated RBC % (0.0-0.3) % 0.0 Absolute Neutrophils (1.2-6.7) 10^3/uL 10.97 H Absolute Lymphocytes (1.2-3.4) 10^3/uL 1.09 L Absolute Monocytes (0.1-0.8) 10^3/uL 1.02 H Absolute Eosinophils (0.0-0.7) 10^3/uL 0.05 Absolute Basophils (0.0-0.2) 10^3/uL 0.07 VBG pH (7.31-7.41) 7.41 VBG pCO2 (41-51) mmHg 40 L VBG pO2 mmHg 24 VBG HCO3 (23-28) mmol/L 26 VBG Total CO2 (24-29) mmol/L 23 L VBG O2 Saturation % 48 VBG Base Excess (-2-3) mmol/L 1 Urine Color (Yellow) Yellow Urine Clarity (Clear) Clear Urine pH (5-8) 6.0 Ur Specific [place] (1.005-1.025) 1.020 Urine Protein (Neg-Trace) mg/dL 30 H Urine Ketones (Negative) mg/dL 80 H Urine Blood (Negative) Negative Urine Nitrite (Negative) Negative Urine Bilirubin (Negative) Moderate H Urine Urobilinogen (Up to 0.2) mg/dL 4.0 H Ur Leukocyte Esterase (Negative) Negative Urine Glucose (Negative) mg/dL Negative POC- Test(urine) Negative Medical Decision Making 24-year-old female with a past medical history of control use, and Jaime Bears disease, presents today with multiple complaints. Complaints are as follows #1: Left-sided back pain #2: Cough chills #3: Nausea and epigastric discomfort. #1: In regards to the back pain, the patient states that she has a history of back spasms. Most recent time was a month or 2 ago. 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 She usually responds well to NSAIDs steroids and muscle relaxants. She did have CT imaging performed 2 months ago and there are no osseous abnormalities in regards to her back pain. She has been taking a significant amount of extra Tylenol Motrin Aleve over the last few days for the back pain. Patient denies any saddle anesthesia, numbness or tingling in the groin, change in sensation when wiping. Patient denies any change in sensation during sexual intercourse, bowel or bladder incontinence, leakage, or retention. Patient denies any weakness in the lower extremities, atypical falls or imbalance. #2: In regards to her cough, she states that she has been having a cough for the last 3 to 5 days. It is productive, and she feels chilled regularly. She admits to a very small amount of speckling in the sputum. She does not smoke tobacco but she does smoke marijuana. No other complaints in regards to this otherwise. No history of blood clots long trips or procedures. #3: Over the last day or so she has had epigastric discomfort and achiness which she describes as feeling like there is a knot in her stomach. She has had a few episodes of vomiting because of this. She denies any significant amount of blood or large clots. She admits to some loose stool intermittently as well. She denies any alcohol use. She denies any other generalized abdominal pain or discomfort. No other complaints at this time. No other modifying factors. Exam for the lungs demonstrates crackles and rhonchi and wheezes particularly on the right. Back demonstrates paraspinal muscular spasm, but no midline spinal tenderness. This is around L2 and L3. No red flags concerning for cauda equina syndrome. Symptoms inconsistent with spinal abscess, no IV drug use. CT imaging recently showed no evidence of tumor or mass. Abdominal exam demonstrates mild/minimal left upper quadrant tenderness in the epigastric region. No pain throughout. No pain at McBurney's point, negative Grimaldo sign. Symptoms inconsistent with appendicitis or cholecystitis. Suspect potential pancreatitis versus mild gastritis likely secondary to the NSAID therapy causing potential gastric ulcer and irritation. We will evaluate for evidence of pneumonia with an x-ray, given breathing treatment. We will give Protonix, famotidine, Carafate and a GI cocktail for suspected gastric irritation or gastric ulcer. Will give Zofran for nausea. Will rehydrate she appears both dehydrated and has not been able to keep much down with the vomiting. We we will give steroids Tylenol and muscle relaxant for her back spasm as well as Lidoderm patch. No indication for imaging as there is no evidence of acute spinal pathology to suggest necessitation for emergent neuroimaging. Will monitor closely and reassess. 12:31 PM Patient's laboratory workup has returned, minimal white count, chest x-ray shows evidence of pneumonia. VBG stable. Electrolytes excellent. Lipase normal. Urinalysis shows evidence of dehydration, but no evidence of urinary tract infection. COVID flu and RSV negative. 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 Patient on reassessment feels much better. Back pain has resolved, cough is improved with breathing treatment, abdomen feels much better. Continued exam shows no signs of an acute surgical abdomen. Patient appears notably stable for discharge. Diagnosis musculoskeletal back spasm, gastric irritation secondary to potential ulcer and medication use, and community-acquired pneumonia. Will recommend avoidance of NSAIDs secondary to the sensitive stomach. Will give Carafate and omeprazole for home use. Recommend dietary changes. Will give azithromycin for potential atypical community-acquired pneumonia. We will give Flexeril and Lidoderm patches for back pain. Will give a prescription for steroids, but we have encouraged the patient to hold off on their use unless her symptoms of her back do not improve over the next 2 to 3 days. Patient is otherwise stable for discharge. Will give a Symbicort inhaler for home use. I have extensively reviewed the treatment plan and discharge instructions with the patient. I have addressed all patient concerns at this time. The patient was made aware of what symptoms to monitor for that would warrant a return to the emergency department. Discussed the plan with the patient, they demonstrate verbal understanding and agreement with our assessment and plan at this time. The documentation in this chart was dictated using Zadego dictation software. Please excuse any dictation errors. FINDINGS: Single AP portable view. Heart size is upper normal. The mediastinum is not widened. Left lung is clear. However, there is significant infiltrate in the medial right lung base. Either right lower lobe or right middle lobe medial segment. No pleural effusions. IMPRESSION: Right lung base infiltrate as described above. No pleural effusions evident this portable view. Quality:SDOH Health Related Social Needs: No Data to Display PFSH All Active Problems (Updated 06/08/24 @ 11:57 by Danish Goodson DO) Left low back pain (Acute) Stomach irritation (Acute) Pneumonia (Acute) Social History Smoking/Tobacco Use Status: Former Tobacco Use Smoking risk assessment performed?: Yes Alcohol Intake: never Substance use type: does not use
[2024-06-08] MEDS: methylPREDNISolone SUCC 125 MG VIAL IVP (11:09)
[2024-06-08 11:11] LABS: Lipase 12 U/L (<78)
[2024-06-08] MEDS: Famotidine 20 MG/2 ML VIAL IVP (11:11)
[2024-06-08] MEDS: Lidocaine 5% Patch 1 PATCH TP (11:13)
[2024-06-08] MEDS: Sucralfate 1 GM TAB 2 GM PO (11:14)
[2024-06-08] MEDS: Cyclobenzaprine 10 MG TAB PO (11:14)
[2024-06-08 11:16] LABS: Bacteria Moderate HPF (Negative); C & S Indicated? C&S Done As Ordered; Casts Negative LPF (Negative); Crystals Few Amorphous HPF (Negative); Epithelial Cells Many HPF (Negative); Mucus Moderate (Negative); RBC 0-2 HPF (0-2); WBC 0-2 HPF (0-5)
[2024-06-08] MEDS: Pantoprazole 40 MG VIAL IVP (11:17)
[2024-06-08] MEDS: ACETAMINOPHEN 1,000 MG/100 ML BAG 400 MG IVPB (11:21)
[2024-06-08] MEDS: Budesonide/Formoterol 160/4.5 6 GM 60 PUFF INH IH (11:26)
[2024-06-08 11:30] LABS: COVID-19 PCR Negative (Negative); Influenza A PCR Negative (Negative); Influenza B PCR Negative (Negative); RSV PCR Negative (Negative)
[2024-06-08 11:32] LABS: Source Nasopharynx
[2024-06-08] MEDS: AZITHROMYCIN 500 MG in Normal Saline 250 ML 250 MG IVPB (11:43)
[2024-06-08] MEDS: Lactated Ringers 1,000 ML 1000 ML IV (11:43)
== END 2024-06-08 13:27 | disposition home or self-care (01) ==
PROVIDERS: Emergency Provider Student in an Organized Health Care Education/Training Program; PCP Family Medicine
DX: J18.9 Pneumonia, unspecified organism (principal); M54.50 Low back pain, unspecified; R10.9 Unspecified abdominal pain; E80.4 Gilbert syndrome; Z87.891 Personal history of nicotine dependence
CPT/HCPCS: 80053; 81025; 82805; 83690; 87637; 96365; 96367; 96375; 99284; 71045; 81003; 81015; 85025; 87086; J0131; J0456; J2405; J2470; J2919